=== PATIENT | female | born 1940 | race Caucasian/White ===

== ENCOUNTER 2017-03-29 10:53 | Inpatient (IN) | payer OTHER ==
[~2017-03-29] VITALS: Ht 162.6 cm; Wt 71.7 kg
--- NOTE | ~2017-03-29 | EKG ---
[address] [address] ELECTROCARDIOGRAM REPORT Name: JERONIMO FREEMAN Room #: 464- ADM IN M.R.#: [id number] Admission: 03/29/17 Attend Phys: Oly Guzman MD Discharge: Date of : 36 Report #: [id number] THIS REPORT FOR: //name// [facility] ED Test Date: 2017-03-29 Test Time: 11:05:50 Pat Name: JERONIMO FREEMAN Department: Room: 464 Gender: F Bit Tapper: Jessica STALLWORTH : 1940 Requested By: Cecelia Russell Order Number: [id number] MD: Syed Burrell Measurements Intervals [place] Rate: 75 P: 72 MS: 166 QRS: 21 QRSD: 86 T: 56 QT: 400 QTc: 447 Interpretive Statements Sinus rhythm Normal tracing Compared to ECG 04/15/2014 08:12:54 No significant changes Electronically Signed On 03-30-2017 7:40:52 CDT by Syed Burrell [email or web address] <ELECTRONICALLY SIGNED> By: Syed Burrell MD, [facility] 03/30/17 0740 04 Syed Burrell MD, FAC /EPI
--- NOTE | ~2017-03-29 | H ---
[facility] [place] [address] HISTORY AND PHYSICAL Name: JERONIMO FREEMAN Room #: 459-P [facility] IN M.R.#: [id number] Admission: 03/29/17 Attend Phys: Oly Guzman MD Discharge: 04/04/17 Date of : 36 Report #: [id number] THIS REPORT FOR: //name// CC: Minnie Guerra DATE OF SERVICE: 03/29/2017 CHIEF COMPLAINT: Abdominal pain and weakness. HISTORY OF PRESENT ILLNESS: The patient is a 77-year-old female who states she had been constipated for last month, went to the bathroom today to have a stool, started feeling sweaty and nauseous when she is on the toilet. She took a nitro, then she became even more weak. EMS was called and she was very hypotensive at the time of their evaluation. She never had chest pain, however. She does have a history of coronary artery disease and had a heart attack in 2014 she reports. PAST MEDICAL HISTORY: Significant for: 1. Reflux. 2. Coronary artery disease, prior CA. 3. COPD. 4. Depression. 5. Anxiety. 6. Polymyalgia rheumatica. 7. Hyperlipidemia. 8. Prior pulmonary embolism. 9. Chronic back pain. 10. Pulmonary hypertension. 11. Osteoarthritis. PAST SURGICAL HISTORY: She has had a hysterectomy and appendectomy in the past. MEDICATIONS: Plavix 75 mg a day, [place] p.r.n., nitroglycerin p.r.n., lisinopril 5 mg a day, QVAR 2 puffs daily, aspirin 81 mg a day, hydrochlorothiazide 25 mg a day, Xanax p.r.n., Spiriva 1 cap daily, Prilosec 20 mg a day, vitamin D3 daily, Coreg 6.25 mg b.i.d., Metamucil 1 pack daily, Colace 100 mg b.i.d., iron daily, atorvastatin 40 a day, fish oil daily, potassium 20 mEq daily and Claritin. ALLERGIES: DIAZEPAM, DOXYCYCLINE, LEVAQUIN, METHOTREXATE, MORPHINE. SOCIAL HISTORY: Nonsmoker, nondrinker, no recreational drugs. REVIEW OF SYSTEMS: CONSTITUTIONAL: She is not aware of any fever or chills. [address] [address] HISTORY AND PHYSICAL Name: OHATCHEE, [place] Room #: 9[facility] IN M.R.#: [id number] Admission: 03/29/17 Attend Phys: Oly Guzman MD Discharge: 04/04/17 Date of : 36 Report #: [id number] HEENT: No headaches or visual changes. CHEST: No chest pain, tightness in chest, short of breath, cough or sputum production. GASTROINTESTINAL: The nausea and constipation per above. GENITOURINARY: No burning or frequency. EXTREMITIES: No new joint pains or swelling. SKIN: No new rashes or wounds. NEUROLOGIC: No numbness or weakness. PHYSICAL EXAMINATION: VITAL SIGNS: In the ER, blood pressure initially 55/34, it is currently 123/71. Her pulse is 79, respiratory rate 18. She is afebrile. GENERAL: She is awake, alert and very pleasant female in no acute distress. She has had several bowel movements since she has come into the hospital. HEENT: Mucous membranes are moist. NECK: Supple, without adenopathy, thyromegaly or bruits. CHEST: Clear to auscultation. CARDIOVASCULAR: Regular rhythm without murmur. ABDOMEN: Soft, diffusely nontender, no masses. Bowel sounds are present. EXTREMITIES: Show no edema. Pulses are intact. SKIN: Intact. NEUROLOGIC: Motor and sensory grossly intact. DIAGNOSTIC DATA: EKG shows sinus rhythm, rate 75, no ST segment changes. LABORATORY DATA: Sodium 129, potassium 4.6, chloride 95, bicarb 26, BUN 17, creatinine 1.3, glucose 150, lactic acid 3.8. AST 45, ALT 29, alkaline phosphatase 115, WBCs 20.9, hemoglobin 13.6, hematocrit 40.4, platelet count 547, 77 segs, 3 bands, 15 lymphs. Urinalysis is unremarkable. CT scan of the abdomen and pelvis shows diffuse mucosal thickening throughout the colon, possible colitis versus malignancy versus ischemia No other abdominal masses or infection. ASSESSMENT: 1. Sepsis syndrome with hypotension secondary to colitis. Started on fluid bolus, started on IV antibiotics. 2. Colitis, possible from constipation versus ischemia versus infectious colitis. Antibiotics, Zosyn and Flagyl. 3. Leukocytosis from the above infection. We will consult GI as well for colitis. She is having bowel movements now, I do not need to intervene there. We will treat her for sepsis protocol as above. <ELECTRONICALLY SIGNED> By: Brendon Guerra MD 04/06/17 0725 1302 [id number] Brendon Guerra MD /nt
[~2017-03-29 10:53] MED LIST: ASPIRIN EC81 M1 PO; ATORVASTATIN CA40 MG PO; CARVEDILOL3.125 MG PO; CELEXA20 MG PO; CLARITIN10 MG PO; COLACE100 MG PO; EFFIENT10 MG PO; FISH OIL 1,001000 M2 PO; FISH OIL 1,2001 EAC4 PO; GABAPENTIN 100100 MG PO; HYDROCHLOROTHIA25 M1 PO; IRON325 PO; K-TAB ER20 MEQ PO; K-TAB10 MEQ PO; MELATONIN5 M1 PO; METAMUCIL1 EAC1 PO; NORCO 10-325 T1 EACH PO; NORVASC10 MG PO; PRILOSEC20 MG PO; QVAR8.7 G1 INH; SPIRIVA18 MCG INH; TOPROL XL50 MG PO; VITAMIN D31000 UNI2 PO; XANAX 0.25 MG0.25 MG PO; ZOCOR 20 MG TAB20 M1 PO
[2017-03-29 10:55] VITALS: BP 55/34
[2017-03-29] MEDS ORDERED: NORCO 10-325 T1 EACH PO (11:02)
[2017-03-29] MEDS ORDERED: NITROGLYCERIN0.4 MG SUBLING (11:02)
[2017-03-29] MEDS ORDERED: PLAVIX 75 MG TA75 M1 PO (11:02)
[2017-03-29] MEDS ORDERED: LISINOPRIL5 MG PO (11:03)
[2017-03-29 11:12] LABS: HEMATOCRIT 40.4 % (37.0-47.0); HEMOGLOBIN 13.6 gm/dL (12.0-15.0); MCH 31.1 pg (26.0-34.0); MCHC 33.7 g/dL (28.0-37.0); MCV 92.1 fL (80.0-100.0); PLATELET COUNT 547 thou/uL (150-400); RBC 4.39 mil/uL (4.20-5.00); RDW 13.3 % (10.5-14.5); WBC 20.9 thou/uL (4.0-11.0)
[2017-03-29 11:14] LABS: MANUAL DIFF YES
[2017-03-29 11:22] LABS: CALCIUM 8.7 mg/dL (8.5-10.1); CREATININE 1.3 mg/dL (0.6-1.0); POTASSIUM 4.6 mmol/L (3.5-5.1)
[2017-03-29 11:26] LABS: DIRECT BILIRUBIN 0.1 mg/dL (<0.1-0.3); TOTAL BILIRUBIN 0.4 mg/dL (<0.1-1.0); TOTAL PROTEIN 6.4 g/dL (6.4-8.2)
[2017-03-29 11:57] LABS: URINE BILIRUBIN NEGATIVE (Negative); URINE BLOOD NEGATIVE (Negative); URINE COLOR YELLOW; URINE GLUCOSE-RANDOM* NEGATIVE (Negative); URINE KETONES NEGATIVE (Negative); URINE NITRITE NEGATIVE (Negative); URINE PROTEIN (DIPSTICK) TRACE (Negative); URINE UROBILINOGEN 0.2 E.U./dl (0.2-1.0)
[2017-03-29 12:14] LABS: ABSOLUTE NEUTROPHILS 16.7 thou/uL (1.4-8.2); PLATELET ESTIMATE INCREASED; TOTAL CELL COUNT 100
[2017-03-29 14:26] VITALS: BP 106/43
[2017-03-29 16:05] VITALS: BP 95/45
[2017-03-29 20:00] VITALS: BP 134/57
[2017-03-30] VITALS (7 sets, daily range): BP systolic 129–177; BP diastolic 58–94
[2017-03-31 05:36] LABS: HEMATOCRIT 23.4 % (37.0-47.0); MCH 31.2 pg (26.0-34.0); MCHC 33.9 g/dL (28.0-37.0); RBC 2.54 mil/uL (4.20-5.00); RDW 13.5 % (10.5-14.5); WBC 16.1 thou/uL (4.0-11.0)
[2017-03-31 05:41] LABS: CALCIUM 7.9 mg/dL (8.5-10.1); CREATININE 1.1 mg/dL (0.6-1.0); POTASSIUM 3.8 mmol/L (3.5-5.1)
[2017-03-31 05:51] LABS: HEMOGLOBIN 7.9 gm/dL (12.0-15.0)
[2017-03-31 06:05] VITALS: BP 150/77
[2017-03-31 07:15] VITALS: BP 160/83
[2017-03-31 11:52] VITALS: BP 128/70
[2017-03-31 12:24] LABS: HEMATOCRIT 22.8 % (37.0-47.0); HEMOGLOBIN 7.7 gm/dL (12.0-15.0)
[2017-03-31 15:01] VITALS: BP 103/58
[2017-03-31 19:40] VITALS: BP 115/66
[2017-04-01 03:25] VITALS: BP 132/69
[2017-04-01 05:09] LABS: HEMATOCRIT 22.4 % (37.0-47.0); HEMOGLOBIN 7.5 gm/dL (12.0-15.0); MCH 31.2 pg (26.0-34.0); MCHC 33.5 g/dL (28.0-37.0); MCV 93.1 fL (80.0-100.0); RBC 2.41 mil/uL (4.20-5.00); RDW 13.4 % (10.5-14.5); WBC 12.4 thou/uL (4.0-11.0)
[2017-04-01 05:32] LABS: CALCIUM 7.7 mg/dL (8.5-10.1)
[2017-04-01 08:00] VITALS: BP 150/82
[2017-04-01 12:29] VITALS: BP 122/61
[2017-04-01 17:24] VITALS: BP 156/80
[2017-04-01 19:45] VITALS: BP 131/69
[2017-04-02 05:18] VITALS: BP 168/87
[2017-04-02 05:31] LABS: ABSOLUTE NEUTROPHILS 6.4 thou/uL (1.4-8.2); BASOPHILS 0.7 % (0.0-2.0); HEMOGLOBIN 8.4 gm/dL (12.0-15.0); LYMPHOCYTES 13.8 % (24.0-44.0); MCHC 33.6 g/dL (28.0-37.0); MCV 92.4 fL (80.0-100.0); MONOCYTES 8.4 % (1.0-8.0); PLATELET COUNT 258 thou/uL (150-400); POLYS 73.1 % (36.0-66.0); RDW 13.3 % (10.5-14.5); WBC 8.8 thou/uL (4.0-11.0)
[2017-04-02 05:40] LABS: MANUAL DIFF NO
[2017-04-02 05:46] LABS: CALCIUM 8.3 mg/dL (8.5-10.1); POTASSIUM 4.1 mmol/L (3.5-5.1)
[2017-04-02 07:59] VITALS: BP 149/83
[2017-04-02 11:07] VITALS: BP 168/97
[2017-04-02 16:07] VITALS: BP 165/86
[2017-04-02 20:00] VITALS: BP 126/78
[2017-04-03 04:19] LABS: ABSOLUTE NEUTROPHILS 5.2 thou/uL (1.4-8.2); BASOPHILS 0.6 % (0.0-2.0); EOSINOPHILS 4.5 % (0.0-3.0); HEMATOCRIT 25.7 % (37.0-47.0); HEMOGLOBIN 8.7 gm/dL (12.0-15.0); MCH 31.1 pg (26.0-34.0); MCHC 33.9 g/dL (28.0-37.0); MCV 91.8 fL (80.0-100.0); PLATELET COUNT 282 thou/uL (150-400); POLYS 67.9 % (36.0-66.0); RDW 13.5 % (10.5-14.5); WBC 7.7 thou/uL (4.0-11.0)
[2017-04-03 04:22] VITALS: BP 176/104
[2017-04-03 04:27] LABS: CALCIUM 8.3 mg/dL (8.5-10.1); POTASSIUM 3.9 mmol/L (3.5-5.1)
[2017-04-03 04:31] LABS: MANUAL DIFF NO
[2017-04-03 07:44] VITALS: BP 189/93
[2017-04-03 11:38] VITALS: BP 198/110
[2017-04-03 11:49] VITALS: BP 198/110
[2017-04-03 15:14] VITALS: BP 190/98
[2017-04-03 19:34] VITALS: BP 153/78
[2017-04-04] VITALS (8 sets, daily range): BP systolic 109–198; BP diastolic 69–110
[2017-04-04] MEDS ORDERED: LISINOPRIL10 MG PO (12:01)
[2017-04-04] MEDS ORDERED: CARVEDILOL12.5 MG PO (12:01)
[2017-04-04] MEDS ORDERED: FLAGYL500 MG PO (12:01)
[2017-04-04] MEDS ORDERED: AZITHROMYCIN 2250 MG PO (12:02)
== END 2017-04-04 17:09 | disposition home health service (06) | DRG 871 ==
LOC: ER 10:53 → EROBS 12:37 → 4W 12:37
PROVIDERS: Emergency Medicine; Family Medicine; Internal Medicine Endocrinology, Diabetes & Metabolism
PROC: 02HV33Z Insertion of Infusion Device into Superior Vena Cava, Percutaneous Approach (ICD-10-PCS; principal; 2017-03-29)
PROC: B548ZZA Ultrasonography of Superior Vena Cava, Guidance (ICD-10-PCS; principal; 2017-03-29)
DX: A41.9 Sepsis, unspecified organism (principal); R65.21 Severe sepsis with septic shock; J96.20 Acute and chronic respiratory failure, unspecified whether with hypoxia or hypercapnia; A04.7 Enterocolitis due to Clostridium difficile; K92.1 Melena; E87.1 Hypo-osmolality and hyponatremia; N17.9 Acute kidney failure, unspecified; K21.9 Gastro-esophageal reflux disease without esophagitis; F41.9 Anxiety disorder, unspecified; F32.9 Major depressive disorder, single episode, unspecified; J44.9 Chronic obstructive pulmonary disease, unspecified; E78.5 Hyperlipidemia, unspecified; G89.29 Other chronic pain; M54.9 Dorsalgia, unspecified; I25.10 Atherosclerotic heart disease of native coronary artery without angina pectoris; I27.2 Other secondary pulmonary hypertension; M19.90 Unspecified osteoarthritis, unspecified site; I11.9 Hypertensive heart disease without heart failure; M35.3 Polymyalgia rheumatica; Z60.2 Problems related to living alone; Z79.899 Other long term (current) drug therapy; Z88.1 Allergy status to other antibiotic agents; Z88.5 Allergy status to narcotic agent; Z88.8 Allergy status to other drugs, medicaments and biological substances; Z86.711 Personal history of pulmonary embolism; Z90.710 Acquired absence of both cervix and uterus; Z95.5 Presence of coronary angioplasty implant and graft; Z90.49 Acquired absence of other specified parts of digestive tract; I25.2 Old myocardial infarction
CPT/HCPCS: 10045; 10047; 27000